=== PATIENT | male | born 1945 | race Caucasian/White ===

== ENCOUNTER 2016-09-28 15:46 | Emergency (ER) | payer OTHER, MEDICARE ==
[~2016-09-28] VITALS: Ht 180.3 cm; Wt 86.2 kg
[~2016-09-28 15:46] MED LIST: ASPIRIN CHILDRE81 MG PO; MELOXICAM7.5 MG PO; PERCOCET 325 MG1 TA2 PO; TRAMADOL50 MG PO; VALIUM5 M1 PO
[2016-09-28 16:09] LABS: ABSOLUTE BASOPHIL COUNT 0 /CUMM (0.0-0.2); ABSOLUTE EOSINOPHIL COUNT 0.1 /CUMM (0.0-0.7); ABSOLUTE GRANULOCYTE CT 4.5 /CUMM (1.4-6.5); ABSOLUTE LYMPH COUNT 1.7 /CUMM (1.2-3.4); ABSOLUTE MONOCYTE COUNT 0.5 /CUMM (0.10-0.60); BASOPHIL % 0.6 % (0.0-2.0); GRANULOCYTE % 65.7 % (42.2-75.2); HEMATOCRIT 42.8 % (42-52); MEAN CORPUSCULAR HGB CONC 33.5 G/DL (33.0-37.0); MEAN CORPUSCULAR VOLUME 83.7 FL (80.0-94.0); MEAN PLATELET VOLUME 8.3 FL (7.4-10.4); PLATELET COUNT 301 /CUMM (130-400); RBC DISTRIBUTION WIDTH 14.7 % (11.5-14.5); RED BLOOD CELL CT 5.12 /CUMM (4.70-6.10); WHITE BLOOD CELL COUNT 6.8 /CUMM (4.8-10.8)
--- NOTE | 2016-09-28 18:05 | ED GI/GU/ABDOMINAL COMPLAINT ---
See Addendum History of Present Illness General Chief Complaint: Abdominal Pain/Flank Pain Stated Complaint: RT SIDE ABDOMINAL PAIN Source: patient, family, old records Exam Limitations: no limitations Vital Signs & Intake/Output Vital Signs & Intake/Output Vital Signs Date Time Temp Pulse Resp B/P Pulse O2 O2 Flow FiO2 Ox Delivery Rate 09/28 1553 98.3 115 20 139/75 96 Room Air Allergies Coded Allergies: NO KNOWN ALLERGIES (08/26/14) NKA PER DIPYRIDAMOLE ORDER SHEET OF 08/26/14 ([facility]) Reconcile Medications Aspirin (Children's Aspirin) 81 MG TAB.CHEW 1 TAB PO DAILY HEART HEALTH ( Reported) Diazepam (Valium) 5 MG TABLET 1-2 TAB PO Q6P PRN muscle strain Meloxicam 7.5 MG TABLET 1 TAB PO DAILY NSAID (Reported) OXYCODONE HCL/ACETAMINOPHEN (Percocet 5-325 MG Tablet) 325 MG/5 MG TAB 1-2 TAB PO Q4-6 PRN PRN SEVERE PAIN TRAMADOL HCL (Tramadol) 50 MG TABLET 1-2 TAB PO Q6P PRN PAIN Triage Note: PT TO ED C/O RLQ PAIN "IT'S A KNOT." STARTED THIS AM. DENIES N/V/D. DENIES S/S. Triage Nurses Notes Reviewed? yes Onset: Morning Duration: hour(s):, intermittent, waxing and waning Timing: recent history Quality/Severity: sharpness, severe Location: right lower quadrant Radiation: no radiation Activities at Onset: rest Prior Abdominal Problems: none Past Sexual History: Unobtainable at this time No Modifying Factors: none HPI: The morning prior to admission patient complains of right lower quadrant pain episodic lasting seconds severe sharp nonradiating occurring several times. He denies fever chills nausea vomiting diarrhea chest pain cough shortness of breath headache dysuria rash bleeding Past History Travel History Traveled to [place] past 21 day No Medical History Any Pertinent Medical History? see below for history Neurological: DENIES Cardiovascular: hypertension Respiratory: COPD Cancer(s): lung cancer Surgical History Surgical History: non-contributory Psychosocial History What is your primary language Tajik Tobacco Use: Current Daily Use Daily Tobacco Use Amount/Type: =< 4 Cigarettes daily ETOH Use: denies use Illicit Drug Use: denies illicit drug use Family History Hx Contributory? No Review of Systems Review of Systems Constitutional: Reports: no symptoms. EENTM: Reports: no symptoms. Respiratory: Reports: no symptoms. Cardiovascular: Reports: no symptoms. GI: Reports: see HPI, abdominal pain. Genitourinary: Reports: no symptoms. Musculoskeletal: Reports: no symptoms. Skin: Reports: no symptoms. Neurological/Psychological: Reports: no symptoms. Hematologic/Endocrine: Reports: no symptoms. Immunologic/Allergic: Reports: no symptoms. All Other Systems: Reviewed and Negative Physical Exam Physical Exam General Appearance: well developed/nourished, alert, awake, anxious, comfortable Head: atraumatic, normal appearance Eyes: Bilateral: normal appearance, PERRL, EOMI, normal inspection. Ears, Nose, Throat, Mouth: hearing grossly normal, moist mucous membrane Neck: normal inspection, supple, full range of motion, normal alignment Respiratory: normal breath sounds, chest non-tender, no respiratory distress, quiet respiration, lungs clear Cardiovascular: regular rate/rhythm, normal peripheral pulses, norml femoral pulses equa Peripheral Pulses: 4+ carotid (R), 4+ carotid (L) Gastrointestinal: normal bowel sounds, soft, non-tender, no organomegaly Male Genitals: normal genitalia Back: normal inspection, normal range of motion Extremities: normal range of motion Neurologic/Psych: no motor/sensory deficits, awake, alert, oriented x 3, normal gait, normal mood/affect, ripsaw grader II-XII nml as tested Skin: intact, normal color, warm/dry Core Measures ACS in differential dx? No Severe Sepsis Present: No Septic Shock Present: No Progress Differential Diagnosis: appendicitis, gastritis, hernia, pancreatitis, ureterolithiasis, UTI/pyelo Plan of Care: Orders Procedure Date/time Status URINALYSIS 09/28 1801 Complete LIPASE 09/28 1555 Complete LACTIC ACID 09/28 1555 Complete COMPREHENSIVE METABOLIC PANEL 09/28 1555 Complete CBC WITHOUT DIFFERENTIAL 09/28 1555 Complete AMYLASE 09/28 1555 Complete EKG 09/28 1555 Active Laboratory Tests 09/28/16 1855: Lactic Acid Cancelled 09/28/16 1830: Urine Color YEL, Urine Clarity CLEAR, Urine pH 6.0, Ur Specific [place] <= 1.005 , Urine Protein NEG, Urine Ketones NEG, Urine Nitrite NEG, Urine Bilirubin NEG, Urine Urobilinogen 1.0, Ur Leukocyte Esterase NEG, Ur Microscopic SEDIMENT EXAMINED, Urine RBC 1-3, Ur Epithelial Cells FEW, Urine Hemoglobin SMALL H, Urine Glucose NEG 09/28/16 1600: Anion Gap 13, Estimated GFR > 60, BUN/Creatinine Ratio 11.0, Glucose 112 H, Lactic Acid 1.2, Calcium 9.4, Total Bilirubin 0.9, AST 19, ALT 26, Alkaline Phosphatase 114, Total Protein 8.0, Albumin 4.1, Globulin 3.9, Albumin/Globulin Ratio 1.1, Amylase 57, Lipase 50, CBC w Diff NO MAN DIFF REQ, RBC 5.12, MCV 83.7 , MCH 28.0, RDW 14.7 H, MPV 8.3, Gran % 65.7, Lymphocytes % 24.3, Monocytes % 7.4, Eosinophils % 2.0, Basophils % 0.6, Absolute Granulocytes 4.5, Absolute Lymphocytes 1.7, Absolute Monocytes 0.5, Absolute Eosinophils 0.1, Absolute Basophils 0, PUBS MCHC 33.5 Diagnostic Imaging: Viewed by Me: CT Scan. Discussed w/RAD: CT Scan. Radiology Impression: No acute change of abdomen. Normal appendix. Diverticulosis of colon without diverticulitis. Initial ED EKG: none Departure Departure Time of Disposition: 1856 Disposition: HOME OR SELF CARE Condition: Stable Clinical Impression Primary Impression: Abdominal pain in male Referrals: ALISON NAILS MD (PCP/Family) Departure Forms: Customer Survey General Discharge Information Prescriptions: Current Visit Scripts Hyoscyamine Sulfate (Levsin-Sl) 1-2 TAB SL Q4P PRN abdominal pain #30 TAB Tramadol HCl (Ultram) 1-2 TAB PO Q6PRN PRN severe pain #30 TAB
--- NOTE | 2016-09-28 18:28 | CT SCAN REPORT ---
EXAMINATION: CT ABDOMEN AND PELVIS WITH CONTRAST CLINICAL INFORMATION: Right lower quadrant pain. History of lung cancer. COMPARISON: CT PET exam 07/13/2016 TECHNIQUE: Multidetector volumetric imaging was performed of the abdomen and pelvis before and after the IV administration of 95 mL of Optiray 320 intravenous contrast. Sagittal and coronal reformatted images were obtained on the technologist's workstation. DLP: 453.88 mGy-cm. FINDINGS: LUNG BASES: Small subpleural blebs at the posterior right lung base. Cystic radiolucencies in the right middle lobe anteriorly. LIVER, GALLBLADDER, AND BILIARY TREE: The liver is normal in size, shape, and attenuation. No focal hepatic lesion or biliary ductal dilatation is present. The gallbladder is unremarkable with no evidence of radiopaque gallstones, gallbladder wall thickening, or obvious pericholecystic inflammatory changes. PANCREAS: Unremarkable. SPLEEN: Unremarkable. ADRENAL GLANDS: Unremarkable. KIDNEYS AND URETERS: No hydronephrosis. Normal enhancement of the cortex of both kidneys. There are small calcifications in the left renal nicole which are vascular, no renal or ureteral calculi. BLADDER: Unremarkable. GASTROINTESTINAL TRACT: Diverticulosis of left colon sigmoid. No acute change of the no diverticulitis. No bowel wall thickening or edema. Moderate volume of stool in the colon. The appendix is normal. Small bowel loops are unremarkable. Small hiatal hernia. ABDOMINAL WALL: No significant hernia is appreciated. LYMPH NODES: Normal. VASCULAR: Atherosclerotic vascular wall calcifications of aorta and iliac vessels. Subtle fusiform aneurysm of the distal aorta proximal to bifurcation measuring 2.6 cm transverse unchanged since prior study. PELVIC VISCERA: Calcifications within the prostate. OSSEOUS STRUCTURES: Degenerative vacuum disc phenomenon L5-S1. Degenerative change of facet joints at lower lumbar spine. IMPRESSION: No acute change of abdomen. Normal appendix. Diverticulosis of colon without diverticulitis.
[2016-09-28] MEDS ORDERED: LEVSIN-SL0.125 MG SL (18:58)
[2016-09-28] MEDS ORDERED: ULTRAM50 M1 PO (18:58)
[2016-09-28 19:07] VITALS: BP 119/81
== END 2016-09-28 19:13 ==
LOC: ERH 15:46
PROVIDERS: Emergency Medicine
DX: R10.31 Right lower quadrant pain (principal)
CPT/HCPCS: 74177; 81001; 93005; 93010